=== PATIENT | male | born 1965 | race Two or more races ===

== ENCOUNTER 2017-10-09 17:49 | Emergency (ER) | payer SELFPAY ==
[2017-10-09] MEDS ORDERED: Albuterol/Ipratropium 3.0-0.5 MG/3 ML Neb Soln NEB ONE (17:52)
[2017-10-09] MEDS ORDERED: Albuterol/Ipratropium 3.0-0.5 MG/3 ML Neb Soln ONE (17:54)
--- NOTE | 2017-10-09 17:57 | EDM.PDOC ---
ED HPI GENERAL MEDICAL PROBLEM - General Stated Complaint: SOB, CHEST PAIN Time Seen by Provider: 10/09/17 17:49 Source of Information: Reports: Patient, Family History Limitations: Reports: Respiratory Distress - History of Present Illness INITIAL COMMENTS - FREE TEXT/NARRATIVE: 51 y.o. male with a h/o CAD, came with his family to the ed due to SOB in the past 16 hours. Pt was driving with his family from [place] to [place]-20 hours- . Pt had chest pain yesterday, which improved as the SOB started. Pt came to the ED with sob, Pulse ox was 76 on RA, O2 by NC and a Duoneb were started. Pt felt better. Pt was in care home for 90 days and may have been exposed to bird droppings. Pt had cardiac Stents placed. He takes Plavix and ASA daily. Pt has a h/o HTN for which he takes BP Meds (?) Pt is a poor historian, no old medical record are available. BP 106/67 Pule 106 Pulse ox 96 % on NRBM 4l. Temp 97.5 Onset: Today Onset Date: 10/09/17 Onset Time: 12:00 Duration: Hour(s):, Getting Worse, Intermittent Location: Reports: Chest Quality: Reports: Same as Previous Episode Severity: Moderate Improves with: Reports: Rest Worsens with: Reports: Movement Context: Reports: Other (travel, H/O CAD) Associated Symptoms: Reports: Chest Pain, Cough mid chest Pain Score (Numeric/FACES): 10 - Related Data Allergies Allergy/AdvReac Type Severity Reaction Status Date / Time No Known Allergies Allergy Verified 10/09/17 18:24 Home Meds: Home Meds Aspirin 81 mg PO DAILY 10/09/17 [History] Clopidogrel [Plavix] 75 mg PO DAILY 10/09/17 [History] Isosorbide Mononitrate [Imdur] 60 mg PO DAILY 10/09/17 [History] Lisinopril 20 mg PO DAILY 10/09/17 [History] glipiZIDE [Glucotrol] 5 mg PO DAILY 10/09/17 [History] hydrOXYzine HCl [Atarax] 50 mg PO BEDTIME 10/09/17 [History] levETIRAcetam [Keppra] 500 mg PO DAILY 10/09/17 [History] metFORMIN [Glucophage] 1,000 mg PO WITHDINNER 10/09/17 [History] ED ROS GENERAL - Review of Systems Review Of Systems: Unable To Obtain (Resp distress, Language) ED EXAM, GENERAL - Physical Exam Exam: See Below Exam Limited By: Respiratory Distress General Appearance: Alert, WD/WN, Moderate Distress Eye Exam: Bilateral Eye: Normal Inspection Ears: Normal External Exam Ear Exam: Bilateral Ear: Auricle Normal Nose: Normal Inspection, Normal Mucosa Throat/Mouth: Normal Inspection Head: Atraumatic, Normocephalic Neck: Normal Inspection Respiratory/Chest: Respiratory Distress, Decreased Breath Sounds, Crackles, Rales, Wheezing, Accessory Muscle Use, Prolonged Expiration Cardiovascular: Normal Peripheral Pulses, Regular Rate, Rhythm, No Edema, No JVD Peripheral Pulses: 1+: Brachial (L) GI/Abdominal: Normal Bowel Sounds, Soft, Non-Tender, No Organomegaly, No Distention, No Abnormal Bruit, No Mass, Pelvis Stable (Male) Exam: Deferred Rectal (Males) Exam: Deferred Back Exam: Normal Inspection, Full Range of Motion Extremities: Normal Inspection, Normal Range of Motion, Non-Tender, No Pedal Edema, Normal Capillary Refill Neurological: Alert, Oriented, CN II-XII Intact, Normal Cognition, No Motor/ Sensory Deficits, Abnormal Gait (walks slowely) Psychiatric: Normal Affect, Normal Mood Skin Exam: Warm, Dry, Intact, Normal Color, No Rash Lymphatic: No Adenopathy EKG INTERPRETATION EKG Date: 10/09/17 Time: 18:05 Rhythm: NSR Rate (Beats/Min): 107 [place]: Normal P-Wave: Present QRS: Normal ST-T: Normal QT: Normal Comparison: NA - No Prior EKG Course - Vital Signs Text/Narrative:: 51 y.o. male with a h/o CAD, came with his family to the ed due to SOB in the past 16 hours. Pt was driving with his family from [place] to [place] hours- . Pt had chest pain yesterday which improved as the SOB started. Pt came to the ED with sob, Pulse ox was 76 on RA, O2 by NC and a Duoneb were started. Pt felt better. Pt was in care home and may have been exposed to bird droppings. Pt had cardiac Stents placed in the past. He takes Plavix and ASA daily. Pt has a h/o HTN for which he takes BP Meds (?) Pt is a poor historian, no old medical record are available. BP 106/67 Pule 106 Pulse ox 96 % on NRBM 4l. Temp 97.5 PE: 51 y.o. hisp male with multiple medical problems, poor historian, came to the ED after 19 hours car ride due to SOB Imaging: CXR: Fungal infection, possible Hisoplasmosis, No CHF as per RAD Labs: Na 126 K.4.0 Lactic acid 3.8 GFR 40, Cr. 1.8 BUN 32 Glc 300 Ca 8.2 Cl 91 Troponin 1.9 BNP > 30777 AST 373 Impression: Fungal pneumonia (histoplasmosis), Non STEMI, CRI, Hyponatremia, H/ O CAD (stents) , IDDM with hyperglycemia, H/O pneumonia Tx: Duo neb, Lasix. Levoquine, NS TKO, Heparin drip with bolus. 6.53 pm Consultation: Dr. Curiel, Hospitalist, . ABG, Heparin drip, Abx Lasix, accepted the patient for transfer and tx Reexam: Pt improved, felt better and was able to talk, not able to give any HPI because he did did not remember things like meds etc. Daughter was present. Puls ox was 96% on a NRBM. ABG was pending Plan: Transfer to [facility] PICU Last Recorded V/S: Last Vital Signs Temp 36.6 C 10/09/17 18:00 Pulse 94 10/09/17 18:00 Resp 33 H 10/09/17 18:00 BP 116/69 10/09/17 18:00 Pulse Ox 10 L 10/09/17 18:00 - Orders/Labs/Meds Orders: Medication Orders Sodium Chloride (Normal Saline) 1,000 mls @ 50 mls/hr IV ASDIRECTED [facility] Labs: Laboratory Tests 10/09/17 10/09/17 10/09/17 Range/Units 17:50 17:50 17:50 WBC 16.3 H (4.5-12.0) X10-3/uL RBC 4.00 L (4.30-5.75) x10(6)uL Hgb 13.1 (11.5-15.5) g/dL Hct 37.0 (30.0-51.3) % MCV 92.4 (80-96) fL MCH 32.6 (27.7-33.6) pg MCHC 35.3 (32.2-35.4) g/dL RDW 13.0 (11.5-15.5) % Plt Count 181 (125-369) X10(3)uL MPV 9.9 (7.4-10.4) fL Add Manual Diff Yes Neutrophils % (Manual) 70 (46-82) % Band Neutrophils % 4 (0-6) % Lymphocytes % (Manual) 19 (13-37) % Monocytes % (Manual) 6 (4-12) % Eosinophils % (Manual) 1 (0-5) % APTT (24.4-33.2) SECONDS ABG pH (7.35-7.45) ABG pCO2 (35-45) mmHg ABG pO2 (83-108) mmHg ABG HCO3 (22-26) mmol/L ABG O2 Saturation (96-97) % ABG Base Excess (-2-2) Corey Test O2 Delivery Device Sodium 126 L (135-145) mmol/L Potassium 4.4 (3.5-5.3) mmol/L Chloride 91 L (100-110) mmol/L Carbon Dioxide 22 (21-32) mmol/L BUN 32 H (7-18) mg/dL Creatinine 1.8 H (0.70-1.30) mg/dL Est Cr Clr Drug Dosing TNP Estimated GFR (MDRD) 40 L (>60) BUN/Creatinine Ratio 17.8 (9-20) Glucose 300 H (80-116) mg/dL Lactic Acid (0.4-2.2) mmol/L Calcium 8.2 L (8.6-10.2) mg/dL Magnesium (1.8-2.5) mg/dL Total Bilirubin (0.1-1.3) mg/dL Direct Bilirubin (0.10-0.20) mg/dL AST (5-25) IU/L ALT (12-36) U/L Alkaline Phosphatase (56-112) IU/L Troponin I 104.120 H* (<0.017-0.056) ng/mL NT-Pro-B Natriuret Pep 35015 H* (<=125) pg/mL Total Protein (6.0-8.0) g/dL Albumin (3.5-5.2) g/dL 10/09/17 10/09/17 10/09/17 Range/Units 17:50 17:50 17:50 WBC (4.5-12.0) X10-3/uL RBC (4.30-5.75) x10(6)uL Hgb (11.5-15.5) g/dL Hct (30.0-51.3) % MCV (80-96) fL MCH (27.7-33.6) pg MCHC (32.2-35.4) g/dL RDW (11.5-15.5) % Plt Count (125-369) X10(3)uL MPV (7.4-10.4) fL Add Manual Diff Neutrophils % (Manual) (46-82) % Band Neutrophils % (0-6) % Lymphocytes % (Manual) (13-37) % Monocytes % (Manual) (4-12) % Eosinophils % (Manual) (0-5) % APTT (24.4-33.2) SECONDS ABG pH (7.35-7.45) ABG pCO2 (35-45) mmHg ABG pO2 (83-108) mmHg ABG HCO3 (22-26) mmol/L ABG O2 Saturation (96-97) % ABG Base Excess (-2-2) Corey Test O2 Delivery Device Sodium (135-145) mmol/L Potassium (3.5-5.3) mmol/L Chloride (100-110) mmol/L Carbon Dioxide (21-32) mmol/L BUN (7-18) mg/dL Creatinine (0.70-1.30) mg/dL Est Cr Clr Drug Dosing Estimated GFR (MDRD) (>60) BUN/Creatinine Ratio (9-20) Glucose (80-116) mg/dL Lactic Acid 3.8 H (0.4-2.2) mmol/L Calcium (8.6-10.2) mg/dL Magnesium 1.8 (1.8-2.5) mg/dL Total Bilirubin 0.8 (0.1-1.3) mg/dL Direct Bilirubin 0.18 (0.10-0.20) mg/dL AST 373 H* (5-25) IU/L ALT 69 H (12-36) U/L Alkaline Phosphatase 63 (56-112) IU/L Troponin I (<0.017-0.056) ng/mL NT-Pro-B Natriuret Pep (<=125) pg/mL Total Protein 7.1 (6.0-8.0) g/dL Albumin 3.6 (3.5-5.2) g/dL 10/09/17 10/09/17 Range/Units 17:50 19:20 WBC (4.5-12.0) X10-3/uL RBC (4.30-5.75) x10(6)uL Hgb (11.5-15.5) g/dL Hct (30.0-51.3) % MCV (80-96) fL MCH (27.7-33.6) pg MCHC (32.2-35.4) g/dL RDW (11.5-15.5) % Plt Count (125-369) X10(3)uL MPV (7.4-10.4) fL Add Manual Diff Neutrophils % (Manual) (46-82) % Band Neutrophils % (0-6) % Lymphocytes % (Manual) (13-37) % Monocytes % (Manual) (4-12) % Eosinophils % (Manual) (0-5) % APTT 24.3 L (24.4-33.2) SECONDS ABG pH 7.35 (7.35-7.45) ABG pCO2 40 (35-45) mmHg ABG pO2 31 L* (83-108) mmHg ABG HCO3 22 (22-26) mmol/L ABG O2 Saturation 57 L* (96-97) % ABG Base Excess -3.2 L (-2-2) Corey Test Passed O2 Delivery Device Non rebr mask Sodium (135-145) mmol/L Potassium (3.5-5.3) mmol/L Chloride (100-110) mmol/L Carbon Dioxide (21-32) mmol/L BUN (7-18) mg/dL Creatinine (0.70-1.30) mg/dL Est Cr Clr Drug Dosing Estimated GFR (MDRD) (>60) BUN/Creatinine Ratio (9-20) Glucose (80-116) mg/dL Lactic Acid (0.4-2.2) mmol/L Calcium (8.6-10.2) mg/dL Magnesium (1.8-2.5) mg/dL Total Bilirubin (0.1-1.3) mg/dL Direct Bilirubin (0.10-0.20) mg/dL AST (5-25) IU/L ALT (12-36) U/L Alkaline Phosphatase (56-112) IU/L Troponin I (<0.017-0.056) ng/mL NT-Pro-B Natriuret Pep (<=125) pg/mL Total Protein (6.0-8.0) g/dL Albumin (3.5-5.2) g/dL Meds: Medications Generic Name Dose Route Start Last Admin Trade Name Freq PRN Reason Stop Dose Admin Sodium Chloride 1,000 mls @ 50 mls/hr 10/09/17 19:00 Normal Saline IV ASDIRECTED ADELAIDA Discontinued Medications Generic Name Dose Route Start Last Admin Trade Name Freq PRN Reason Stop Dose Admin Albuterol/Ipratropium 3 ml 10/09/17 17:52 10/09/17 18:10 Duoneb 3.0-0.5 Mg/3 Ml NEB 10/09/17 17:53 3 ml ONETIME ONE Administration Albuterol/Ipratropium Confirm 10/09/17 17:54 10/09/17 18:42 Duoneb 3.0-0.5 Mg/3 Ml Administered 10/09/17 17:55 Not Given Dose 3 ml .ROUTE .STK-MED ONE Aspirin 324 mg 10/09/17 18:04 10/09/17 18:42 Aspirin PO 10/09/17 18:05 Not Given ONETIME ONE Furosemide 40 mg 10/09/17 18:13 10/09/17 18:25 Lasix IVPUSH 10/09/17 18:14 40 mg NOW ONE Administration Furosemide 20 mg 10/09/17 19:05 10/09/17 19:40 Lasix IVPUSH 10/09/17 19:06 Not Given ONETIME ONE Heparin Sodium (Porcine) 4,000 units 10/09/17 19:20 10/09/17 19:43 Heparin Sodium IVPUSH 10/09/17 19:21 4,000 units .BOLUS ONE Administration Levofloxacin/Dextrose 750 mg/ 150 mls @ 100 mls/hr 10/09/17 18:45 10/09/17 19 :02 Premix IV 10/09/17 20:14 100 mls/hr ONETIME ONE Administration Heparin Sodium/Sodium Chloride 25,000 units in 500 mls @ 19.98 mls/hr 19:30 10/09/17 20:06 Heparin 25,000 Units In 1/2 Ns 500 Ml IV 10.8 units/kg/hr TITRATE ADELAIDA 19.98 mls/hr Administration Protocol 10.8 UNITS/KG/HR Departure - Departure Time of Disposition: 20:00 Disposition: DC/Tfer to Acute Hospital 02 Reason for Transfer *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
[2017-10-09] MEDS ORDERED: Aspirin 81 MG Tab.Chew PO ONE (18:04)
[2017-10-09] MEDS ORDERED: Furosemide 40 MG/4 ML VIAL IVPUSH ONE (18:13)
[2017-10-09] MEDS ORDERED: Levofloxacin/Dextrose 5%-Water 750 MG in Premix Bag 1 BAG IV ONE (18:45)
[2017-10-09] MEDS ORDERED: Sodium Chloride 0.9% 1,000 ML IV SCH (19:00)
[2017-10-09] MEDS ORDERED: Furosemide 20 MG/2 ML VIAL IVPUSH ONE (19:05)
[2017-10-09] MEDS ORDERED: Heparin Sodium 5,000 Units/ML Vial IVPUSH ONE (19:20)
[2017-10-09] MEDS ORDERED: Heparin Sodium/0.45% NaCl 25,000 UNITS/500 ML BAG IV SCH (19:30)
--- NOTE | 2017-10-10 10:00 | CR ---
INDICATION: Short of breath. CHEST: A portable AP upright view of the chest was obtained 10/09/2017. No comparisons were available. The heart, mediastinum, and bony thorax were unremarkable. Overlying EKG leads are noted. Fluffy patchy infiltrates are scattered about the lungs, most prominent in the right upper lung field, with a somewhat indistinct nodular appearance. The appearance is suggestive of a fungal pneumonia, although other etiology, even neoplasia, cannot be entirely excluded. Unusual CHF is felt to be unlikely with this appearance, since the heart is normal in size and the appearance of the infiltrates, which are alveolar, are not wholly centralized. IMPRESSION: Areas of infiltrate scattered about the lungs, more peripheral than expected for acute pulmonary edema, raising question of either inhalation injury or fungal disease. Other unusual pneumonia cannot be excluded. Report was called to Dr. Woodall at approximately 1920 hours, 10/09/2017. [facility]
== END 2017-10-09 20:42 ==
LOC: FB.ED 17:49
DX: I21.4 Non-ST elevation (NSTEMI) myocardial infarction (principal); J18.9 Pneumonia, unspecified organism; Z79.82 Long term (current) use of aspirin; Z79.899 Other long term (current) drug therapy
CPT/HCPCS: 36415; 36600; 71045; 80048; 80076; 82803; 83605; 83735; 83880; 84484; 85025; 85730; 87040; 93005; 94640; 96365; 96366; 96375; 99285; J1644; J1940; J1956; J7620

== ENCOUNTER 2018-11-29 21:13 | Observation (INO) | payer MEDICAID ==
--- NOTE | 2018-11-29 21:30 | EDM.PDOC ---
ED HPI GENERAL MEDICAL PROBLEM - General Stated Complaint: VOMITING Time Seen by Provider: 11/29/18 21:20 Source of Information: Reports: Patient, EMS - History of Present Illness INITIAL COMMENTS - FREE TEXT/NARRATIVE: pt comes from home by EMS with c/o gen weakness and 2 emesis since yesterday, tells me he felt light headed yesterday and think he may passed out, denies any injuries or chest pain/ SOB/ leg pain or edema , denies diarrhea or any other associated resp / GI/CV sx. pt has Hx of CAD/ multiple stents and DM . pt here appear comfortable and denies any nausea or pain. SBP at home by EMS was 90 , now here is nl. - Related Data Allergies Allergy/AdvReac Type Severity Reaction Status Date / Time No Known Allergies Allergy Verified 06/11/18 22:00 Home Meds: Home Meds Aspirin 81 mg PO DAILY 10/09/17 [History] Clopidogrel [Plavix] 75 mg PO DAILY 10/09/17 [History] Isosorbide Mononitrate [Imdur] 30 mg PO DAILY 10/09/17 [History] glipiZIDE [Glucotrol] 5 mg PO DAILY 10/09/17 [History] levETIRAcetam [Keppra] 500 mg PO BID 10/09/17 [History] metFORMIN [Glucophage] 1,000 mg PO WITHDINNER 10/09/17 [History] Carvedilol 6.25 mg PO BID 04/02/18 [History] Chlorthalidone 25 mg PO DAILY 04/02/18 [History] Insulin Glarg,Human.Rec.Analog [Lantus] 20 units SQ BEDTIME 04/02/18 [History] atorvaSTATin [Lipitor] 40 mg PO BEDTIME 04/02/18 [History] hydrALAZINE [Apresoline] 5 mg PO TID 04/02/18 [History] Past Medical History Cardiovascular History: Reports: High Cholesterol, Hypertension Other Cardiovascular History: 3 stents last year and this august(2017) Respiratory History: Reports: Other (See Below) Other Respiratory History: chronic smoker; hx of pneumonia Musculoskeletal History: Reports: Arthritis Neurological History: Reports: Other (See Below) Other Neuro History: hx of siezure Psychiatric History: Reports: Anxiety Endocrine/Metabolic History: Reports: Hypothyroidism Social & Family History - Family History Family Medical History: Noncontributory - Caffeine Use Caffeine Use: Reports: Coffee, Soda ED ROS GENERAL - Review of Systems Review Of Systems: See Below Constitutional: Reports: Fatigue. Denies: Fever, Chills, Night Sweats HEENT: Reports: No Symptoms Respiratory: Reports: No Symptoms. Denies: Shortness of Breath, Cough Cardiovascular: Reports: No Symptoms. Denies: Chest Pain, Edema, Palpitations GI/Abdominal: Reports: Anorexia, Vomiting. Denies: Abdominal Pain, Diarrhea, Mucous in Stool, Nausea Musculoskeletal: Reports: No Symptoms Skin: Reports: No Symptoms Neurological: Reports: No Symptoms Psychiatric: Reports: No Symptoms ED EXAM, GENERAL - Physical Exam Exam: See Below Exam Limited By: No Limitations General Appearance: Alert, No Apparent Distress Eye Exam: Bilateral Eye: Normal Inspection Ears: Normal External Exam Nose: Normal Inspection Throat/Mouth: Normal Inspection Head: Atraumatic Neck: Normal Inspection, Supple, Non-Tender Respiratory/Chest: No Respiratory Distress, Lungs Clear Cardiovascular: Normal Peripheral Pulses, Regular Rate, Rhythm, No Edema, No JVD GI/Abdominal: Normal Bowel Sounds, Soft, Non-Tender, No Organomegaly, No Distention Extremities: Normal Inspection, Normal Capillary Refill. No: Pedal Edema Neurological: Alert, Oriented, CN II-XII Intact Course - Vital Signs Text/Narrative:: pt condition remained stable here and unchanged, i do feel his emesis and pre- syncope sx at home are related to hypovolemia, labs shows signs of dehydration. will admit pt OBS to continue with gent dehydration. he will be placed on remote tele and will repeat cardiac enzymes in the morning. Dx. dehydration. syncope. gen weakness. elevated TSH . Hx of CAD and DM. Last Recorded V/S: Last Vital Signs Temp 35.9 C 11/29/18 21:13 Pulse 76 11/29/18 21:13 Resp 18 11/29/18 21:13 BP 118/73 11/29/18 21:13 Pulse Ox 99 11/29/18 21:13 - Orders/Labs/Meds Orders: Active Orders 24 hr Category Date Time Status Patient Status [ADT] Routine ADT 11/29/18 22:39 Ordered Antiembolic Devices [RC] .Routine Care 11/29/18 22:41 Ordered EKG Documentation Completion [RC] ASDIRECTED Care 11/29/18 21:34 Active Pulse Oximetry [RC] PRN Care 11/29/18 22:39 Ordered Up With Assistance [RC] ASDIRECTED Care 11/29/18 22:39 Ordered VTE/DVT Education [RC] Click to Edit Care 11/29/18 22:41 Ordered Vital Signs [RC] Q4H Care 11/29/18 22:39 Ordered Carbohydrate Counting [Consistent Carbohydrate Diet] [ Diet 11/30/18 Breakfast Ordered DIET] LIPASE, SERUM Stat Lab 11/29/18 21:20 Received TROPONIN I [CHEM] Timed Lab 11/30/18 07:00 Ordered Acetaminophen [Tylenol] Med 11/29/18 22:39 Ordered 650 mg PO Q4H PRN Ondansetron [Zofran] Med 11/29/18 22:46 Ordered 4 mg IVPUSH Q6H PRN Sodium Chloride 0.9% @ 125 MLS/HR (1000ml) Med 11/29/18 23:00 Ordered Sodium Chloride 0.9% [Normal Saline] 1,000 ml IV ASDIRECTED DVT/VTE Prophylaxis Reflex [OM.PC] Per Unit Routine Oth 11/29/18 22:39 Ordered Resuscitation Status Routine Resus Stat 11/29/18 22:39 Ordered EKG 12 Lead [EK] Routine Ther 11/29/18 21:34 Ordered Medication Orders Acetaminophen (Tylenol) 650 mg PO Q4H PRN PRN Reason: analgesia/fever Sodium Chloride (Normal Saline) 1,000 mls @ 125 mls/hr IV ASDIRECTED ADELAIDA Ondansetron HCl (Zofran) 4 mg IVPUSH Q6H PRN PRN Reason: Nausea/Vomiting Labs: Laboratory Tests 11/29/18 11/29/18 11/29/18 Range/Units 21:20 21:20 21:20 WBC 8.0 (4.5-12.0) X10-3/uL RBC 4.65 (4.30-5.75) x10(6)uL Hgb 15.7 (13.5-17.8) g/dL Hct 43.6 (30.0-51.3) % MCV 93.6 (80-96) fL MCH 33.8 H (27.7-33.6) pg MCHC 36.1 H (32.2-35.4) g/dL RDW 12.9 (11.5-15.5) % Plt Count 152 (125-369) X10(3)uL MPV 13.0 H (7.4-10.4) fL Neut % (Auto) 67.1 (46-82) % Lymph % (Auto) 24.1 (13-37) % [place] % (Auto) 5.4 (4-12) % Eos % (Auto) 3 (1.0-5.0) % Baso % (Auto) 1 (0-2) % Neut # (Auto) 5.4 (1.6-8.3) # Lymph # (Auto) 1.9 (0.6-5.0) # [place] # (Auto) 0.4 (0.0-1.3) # Eos # (Auto) 0.2 (0.0-0.8) # Baso # (Auto) 0.1 (0.0-0.2) # Sodium 140 (135-145) mmol/L Potassium 5.4 H (3.5-5.3) mmol/L Chloride 104 (100-110) mmol/L Carbon Dioxide 29 (21-32) mmol/L BUN 36 H (7-18) mg/dL Creatinine 1.6 H (0.70-1.30) mg/dL Est Cr Clr Drug Dosing TNP Estimated GFR (MDRD) 45 L (>60) BUN/Creatinine Ratio 22.5 H (9-20) Glucose 140 H (80-116) mg/dL Calcium 9.2 (8.6-10.2) mg/dL Total Bilirubin 0.7 (0.1-1.3) mg/dL AST 27 H D (5-25) IU/L ALT 31 (12-36) U/L Alkaline Phosphatase 89 (56-112) IU/L Troponin I 0.043 (<0.017-0.056) ng/mL Total Protein 7.1 (6.0-8.0) g/dL Albumin 4.1 (3.5-5.2) g/dL Globulin 3.0 g/dL Albumin/Globulin Ratio 1.4 Amylase 87 (25-115) U/L TSH, Ultra Sensitive 9.86 H* (0.36-3.74) IU/mL Meds: Medications Generic Name Dose Route Start Last Admin Trade Name Freq PRN Reason Stop Dose Admin Acetaminophen 650 mg 06/14/19 22:39 Tylenol PO Q4H PRN analgesia/fever Sodium Chloride 1,000 mls @ 125 mls/hr 11/29/18 23:00 Normal Saline IV ASDIRECTED [facility] Ondansetron HCl 4 mg 11/29/18 22:46 Zofran IVPUSH Q6H PRN Nausea/Vomiting Discontinued Medications Generic Name Dose Route Start Last Admin Trade Name Burke PRN Reason Stop Dose Admin Sodium Chloride 500 mls @ 999 drops/sec 11/29/18 21:33 11/29/18 21:57 Normal Saline IV 11/29/18 21:34 999 drops/sec .BOLUS ONE Administration Departure - Departure Time of Disposition: 22:55 Disposition: Refer to Observation Clinical Impression: Vomiting, Syncope - Discharge Information - My Orders Last 24 Hours: My Active Orders 11/29/18 21:20 LIPASE, SERUM Stat 11/29/18 21:34 EKG Documentation Completion [RC] ASDIRECTED EKG 12 Lead [EK] Routine 11/29/18 22:39 Patient Status [ADT] Routine Pulse Oximetry [RC] PRN Up With Assistance [RC] ASDIRECTED Vital Signs [RC] Q4H Acetaminophen [Tylenol] 650 mg PO Q4H PRN DVT/VTE Prophylaxis Reflex [OM.PC] Per Unit Routine Resuscitation Status Routine 11/29/18 22:41 Antiembolic Devices [RC] .Routine VTE/DVT Education [RC] Click to Edit 11/29/18 22:46 Ondansetron [Zofran] 4 mg IVPUSH Q6H PRN 11/29/18 23:00 Sodium Chloride 0.9% @ 125 MLS/HR (1000ml) Sodium Chloride 0.9% [Normal Saline] 1,000 ml IV ASDIRECTED 11/30/18 07:00 TROPONIN I [CHEM] Timed 11/30/18 Breakfast Carbohydrate Counting [Consistent Carbohydrate Diet] [DIET] - Assessment/Plan Last 24 Hours: My Active Orders 11/29/18 21:20 LIPASE, SERUM Stat 11/29/18 21:34 EKG Documentation Completion [RC] ASDIRECTED EKG 12 Lead [EK] Routine 11/29/18 22:39 Patient Status [ADT] Routine Pulse Oximetry [RC] PRN Up With Assistance [RC] ASDIRECTED Vital Signs [RC] Q4H Acetaminophen [Tylenol] 650 mg PO Q4H PRN DVT/VTE Prophylaxis Reflex [OM.PC] Per Unit Routine Resuscitation Status Routine 11/29/18 22:41 Antiembolic Devices [RC] .Routine VTE/DVT Education [RC] Click to Edit 11/29/18 22:46 Ondansetron [Zofran] 4 mg IVPUSH Q6H PRN 11/29/18 23:00 Sodium Chloride 0.9% @ 125 MLS/HR (1000ml) Sodium Chloride 0.9% [Normal Saline] 1,000 ml IV ASDIRECTED 11/30/18 07:00 TROPONIN I [CHEM] Timed 11/30/18 Breakfast Carbohydrate Counting [Consistent Carbohydrate Diet] [DIET]
[2018-11-29] MEDS ORDERED: Sodium Chloride 0.9% 500 ML IV ONE (21:33)
[2018-11-29] MEDS ORDERED: Acetaminophen 325 MG Tab PO PRN (22:39)
[2018-11-29] MEDS ORDERED: Ondansetron 4 MG/2 ML SDV IVPUSH PRN (22:46)
[2018-11-29] MEDS ORDERED: Sodium Chloride 0.9% 1,000 ML IV SCH (23:00)
[2018-11-29] MEDS ORDERED: Albuterol 8 GM Inhaler INH PRN (23:35)
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
[2018-11-30] MEDS ORDERED: Carvedilol 6.25 MG Tab PO SCH (09:00)
[2018-11-30] MEDS ORDERED: levETIRAcetam 500 MG Tab PO SCH (09:00)
[2018-11-30] MEDS ORDERED: Aspirin 81 MG Tab.Chew PO SCH (09:00)
[2018-11-30] MEDS ORDERED: metFORMIN 1,000 MG Tab PO SCH (09:00)
[2018-11-30] MEDS ORDERED: Clopidogrel 75 MG Tab PO SCH (09:00)
[2018-11-30] MEDS ORDERED: Isosorbide Mononitrate 60 MG Tab.ER PO SCH (09:00)
[2018-11-30] MEDS ORDERED: INSULIN GLARG HUMAN REC ANALOG 20 UNIT SQ SCH (09:00)
[2018-11-30] MEDS ORDERED: atorvaSTATin 40 MG Tab PO SCH (21:00)
== END 2018-11-30 10:42 | disposition home or self-care (01) ==
LOC: FB.ED 21:13 → FB.MS 22:48
PROVIDERS: ADMIT Family Medicine; ATTEND Family Medicine
DX: R55 Syncope and collapse (principal); E86.0 Dehydration; N17.9 Acute kidney failure, unspecified; I25.10 Atherosclerotic heart disease of native coronary artery without angina pectoris; I50.9 Heart failure, unspecified; E11.65 Type 2 diabetes mellitus with hyperglycemia; I10 Essential (primary) hypertension; E78.00 Pure hypercholesterolemia, unspecified; I25.2 Old myocardial infarction; M19.90 Unspecified osteoarthritis, unspecified site; E03.9 Hypothyroidism, unspecified; F41.9 Anxiety disorder, unspecified; F17.200 Nicotine dependence, unspecified, uncomplicated; Z79.82 Long term (current) use of aspirin; Z79.4 Long term (current) use of insulin; Z79.899 Other long term (current) drug therapy; Z98.890 Other specified postprocedural states; Z95.5 Presence of coronary angioplasty implant and graft
CPT/HCPCS: 36415; 80048; 80053; 82150; 82962; 83690; 84443; 84484; 85025; 93005; 96360; 99285; J7030; J7040; 96361; G0378

== ENCOUNTER 2018-12-09 21:12 | Emergency (ER) | payer MEDICAID ==
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
== END 2018-12-09 22:55 | disposition home or self-care (01) ==
LOC: FB.ED 21:12
DX: R42 Dizziness and giddiness (principal); I10 Essential (primary) hypertension; E78.00 Pure hypercholesterolemia, unspecified; F41.9 Anxiety disorder, unspecified; F32.9 Major depressive disorder, single episode, unspecified; E03.9 Hypothyroidism, unspecified; F17.210 Nicotine dependence, cigarettes, uncomplicated; Z79.82 Long term (current) use of aspirin; Z79.899 Other long term (current) drug therapy; Z88.0 Allergy status to penicillin
CPT/HCPCS: 36415; 80053; 83735; 84484; 85025; 93005; 99281

== ENCOUNTER 2019-08-17 22:53 | Inpatient (IN) | payer MEDICAID, OTHER ==
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
[2019-08-18] MEDS ORDERED: Bumetanide 1 MG Tab PO ONE (00:53)
[2019-08-18] MEDS ORDERED: Ondansetron 4 MG Tab.DIS PO PRN (02:58)
[2019-08-18] MEDS ORDERED: Nitroglycerin 0.4 MG Tab.SL SL PRN (02:58)
[2019-08-18] MEDS: Bumetanide 1 MG/4 ML MDV IVPUSH SCH ×2 (03:28→20:41)
[2019-08-18] MEDS: Sodium Chloride 0.9% 10 ML Syringe FLUSH PRN ×6 (03:37→20:56)
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
[2019-08-18] MEDS ORDERED: Ferrous Sulfate 325 MG Tab PO SCH (09:00)
[2019-08-18] MEDS ORDERED: Furosemide 100 MG/10 ML SDV IVPUSH ONE (09:00)
[2019-08-18] MEDS ORDERED: Insuln Aspart Prot/Insulin Aspart 100 Units/ML 3 ML FlexPen SUBCUT SCH (09:00)
[2019-08-18] MEDS: Morphine 2 MG/ML SYRINGE IVPUSH PRN ×2 (09:10→15:59)
[2019-08-18] MEDS: Carvedilol 6.25 MG Tab PO SCH ×2 (09:15→20:41)
[2019-08-18] MEDS: Docusate Sodium 100 MG Cap PO SCH ×2 (09:15→20:41)
[2019-08-18] MEDS: Aspirin 81 MG Tab.Chew PO SCH (09:15)
[2019-08-18] MEDS: levETIRAcetam 500 MG Tab PO SCH ×2 (09:15→20:43)
[2019-08-18] MEDS: OXcarbazepine 300 MG Tab PO SCH (09:16)
[2019-08-18] MEDS: Sertraline 25 MG Tab PO SCH (09:16)
[2019-08-18] MEDS: Famotidine 20 MG Tab PO SCH (09:16)
[2019-08-18] MEDS: Clopidogrel 75 MG Tab PO SCH (09:16)
[2019-08-18] MEDS: Gabapentin 300 MG Cap PO SCH ×3 (09:17→20:45)
--- NOTE | 2019-08-18 11:41 | CR ---
INDICATION: Short of breath. CHEST, TWO VIEWS: PA and lateral views of the chest were obtained 08/18/2019 and compared with 06/11/2018 and 04/02/2018. Interval placement of a bipolar pacemaker is noted with leads appearing to be in satisfactory position. The heart appears mildly enlarged, most likely emphasized by a relatively poor inspiration. The aorta is somewhat tortuous but did not appear significantly calcified. Bony structures appear to be grossly intact. A definite active infiltrate or effusion was not identified. No free air is noted under the hemidiaphragm leaves. IMPRESSION: 1. No acute process. 2. ASHD with mild cardiac enlargement and bipolar pacemaker leads. MTDD
--- NOTE | 2019-08-18 11:59 | CT ---
INDICATION: Ascites (creatinine 2.1, GFR 33). CT ABDOMEN AND PELVIS WITHOUT CONTRAST: Spiral 3.75 mm axial sections were obtained through the abdomen and pelvis without contrast 08/18/2019 - no comparison. Total exam DLP was 1730.96 mGy/cm. The lower lung meek and pleural spaces visualized revealed slightly heavy markings, a portion of which appear to be hydrostatic and some may represent minimal atelectatic change or even minimal patchy pneumonia and/or fibrosis. No gross consolidating pneumonia or effusion was seen. The heart appears to be at the upper limits of normal in size or slightly enlarged with pacemaker leads in place. No pericardial effusion was seen. There is noted abdominal ascites about the liver, pericolic gutters, and in the mid abdomen as well as extending into the pelvis. The ascites is moderate in severity. Gallstone and sludge noted in the gallbladder which was not grossly enlarged. No definite ductal dilatation was seen - liver density appears to be grossly normal. No focal liver lesion was seen. There is also ascitic fluid surrounding portions of the spleen which was otherwise unremarkable. The pancreas appeared normal. Calcifications are noted in the abdominal aorta and at the origin of the superior mesenteric artery and in the iliac and femoral arteries. No definite retroperitoneal mass was seen. The prostate did not appear grossly enlarged. The urinary bladder was slightly prominent with a thickened wall suggested which could be on the basis of cystitis but should be correlated clinically. The appendix is absent compatible with history of its removal. No evidence of free air or definite bowel obstruction was seen. The stomach is not fully distended making it difficult to exclude thickening of the wall. The adrenal glands appeared grossly normal. There appears to be some renal fascial thickening which may represent mild renal cortical scarring. The kidneys showed no evidence of renal calcinosis or definite mass lesions or obstruction. However, solid organs are not ideally evaluated without IV contrast. There is evidence of anasarca with increased density in the subcutaneous tissues. IMPRESSION: 1. Abdominal ascites with anasarca - subcutaneous tissues are increased in density. 2. Renal cortical scarring. 3. Thickening of the urinary bladder wall. 4. Cardiac enlargement with bipolar pacemaker leads. 5. Basilar parenchymal changes of questionable etiology, may be on the basis of minimal pneumonia, atelectasis, fibrosis. 6. ASD. 7. Cholelithiasis. The possibility of cholecystitis is difficult to entirely exclude in this patient with fluid surrounding the gallbladder due to the abdominal ascites - acute cholecystitis cannot be excluded. Report was called to Dr. Oquendo at 1130 hours. [facility]
[2019-08-18] MEDS: Ondansetron 4 MG/2 ML SDV IV PRN (17:35)
[2019-08-18] MEDS ORDERED: VALSARTAN PO SCH (21:00)
[2019-08-18] MEDS ORDERED: SACUBITRIL PO SCH (21:00)
[2019-08-18] MEDS ORDERED: atorvaSTATin 40 MG Tab PO SCH (21:00)
[2019-08-18] MEDS ORDERED: Isosorbide Mononitrate 30 MG Tab.ER PO SCH (21:00)
[2019-08-18] MEDS ORDERED: [UNRECOGNIZED DRUG - OTHER] PO SCH (21:00)
[2019-08-19] MEDS: Ondansetron 4 MG/2 ML SDV IV PRN (07:53)
[2019-08-19] MEDS: Sodium Chloride 0.9% 10 ML Syringe FLUSH PRN (07:55)
[2019-08-19] MEDS ORDERED: Furosemide 40 MG/4 ML VIAL IVPUSH SCH (09:00)
[2019-08-19] MEDS: Aspirin 81 MG Tab.Chew PO SCH (10:06)
[2019-08-19] MEDS: Docusate Sodium 100 MG Cap PO SCH (10:06)
[2019-08-19] MEDS: levETIRAcetam 500 MG Tab PO SCH (10:07)
[2019-08-19] MEDS: Famotidine 20 MG Tab PO SCH (10:07)
[2019-08-19] MEDS: Carvedilol 6.25 MG Tab PO SCH (10:07)
[2019-08-19] MEDS: Clopidogrel 75 MG Tab PO SCH (10:08)
[2019-08-19] MEDS: Sertraline 25 MG Tab PO SCH (10:08)
[2019-08-19] MEDS: OXcarbazepine 300 MG Tab PO SCH (10:08)
[2019-08-19] MEDS: Gabapentin 300 MG Cap PO SCH (10:11)
[2019-08-19] MEDS ORDERED: Insulin Lispro Protamine/Lispro 75-25 100 Units/ML 3 ML KwikPen SUBCUT SCH (10:30)
--- NOTE | 2019-08-19 10:57 | US ---
INDICATION: Pain, ascites. RIGHT UPPER QUADRANT/GALLBLADDER ULTRASOUND: Multiple sonographic images were obtained with 2D and color flow imaging and revealed the gallbladder to measure 6.6 x 2.7 x 3 cm. It has a double wall appearance, pericholecystic fluid, and calculi. There was tenderness overlying the gallbladder compatible with a positive ultrasonographic Mccarty's sign with the wall measuring 4.5 mm. The findings are compatible with cholelithiasis and possibly acute cholecystitis. Relatively mild degree of ascites is noted. The liver did not appear enlarged measuring 12.8 cm anteroposterior with no definite intrahepatic ductal dilatation. The right kidney measured 10.7 x 4.5 x 5.1 cm and appeared normal. Common bile duct appeared to be normal at approximately 4.5 mm. It was not well delineated. Pancreas was partly visualized and appeared normal, the tail area not well seen due to intestinal gas overlying it. IMPRESSION: Findings are compatible with cholelithiasis and cholecystitis, possibly acute. MTDD
--- NOTE | 2019-08-19 11:24 | DISCH ---
DISCHARGE DATE: 08/19/2019 REASON FOR ADMISSION: CHF exacerbation. DISCHARGE DIAGNOSES: 1. Congestive heart failure exacerbation. 2. Acute cholecystitis. 3. Chronic kidney disease. 4. Coronary artery disease. 5. Ascites. CONSULTATION: None. PROCEDURES: Ultrasound, CT abdomen. BRIEF COURSE: A 53-year-old male who came in with abdominal pain, swelling, and shortness of breath, was found to have ascites and diagnosed with a CHF exacerbation and got some Lasix and Bumex, but he complained of abdominal pain that is moderate to severe. Ultrasound revealed acute cholecystitis, and the troponin and BNP have also been going up rather than improving. He has had no significant EKG changes and has had no chest pain. Decision was made to transfer him to [facility] for further workup and consultation as necessary. I spent more than 35 minutes in the discharge of the patient. /[id number] [phone] GONZALEZ/ROBERT
== END 2019-08-19 11:08 | DRG 280 ==
LOC: FB.ED 22:53 → FB.MS 08-18 02:53
PROVIDERS: ADMIT Emergency Medicine; ATTEND Family Medicine
DX: I13.0 Hypertensive heart and chronic kidney disease with heart failure and stage 1 through stage 4 chronic kidney disease, or unspecified chronic kidney disease (principal); I50.23 Acute on chronic systolic (congestive) heart failure; I21.4 Non-ST elevation (NSTEMI) myocardial infarction; N17.9 Acute kidney failure, unspecified; K81.0 Acute cholecystitis; R18.8 Other ascites; I25.10 Atherosclerotic heart disease of native coronary artery without angina pectoris; E11.65 Type 2 diabetes mellitus with hyperglycemia; E11.22 Type 2 diabetes mellitus with diabetic chronic kidney disease; F17.200 Nicotine dependence, unspecified, uncomplicated; M54.9 Dorsalgia, unspecified; F32.9 Major depressive disorder, single episode, unspecified; N18.9 Chronic kidney disease, unspecified; E78.5 Hyperlipidemia, unspecified; G40.909 Epilepsy, unspecified, not intractable, without status epilepticus; F41.9 Anxiety disorder, unspecified; E03.9 Hypothyroidism, unspecified; E78.00 Pure hypercholesterolemia, unspecified; Z95.5 Presence of coronary angioplasty implant and graft; Z88.0 Allergy status to penicillin; Z79.4 Long term (current) use of insulin; Z79.899 Other long term (current) drug therapy; Z90.49 Acquired absence of other specified parts of digestive tract
CPT/HCPCS: 36415; 71046; 74176; 76705; 80048; 80053; 81001; 82962; 83735; 83880; 84439; 84443; 84484; 85025; 85610; 86140; 93005; 93010; 99285; 99285-25; A9270-GY; J1815-GY; J1940; J2270; J2405; J3490

== ENCOUNTER 2019-09-06 18:56 | Emergency (ER) | payer MEDICAID ==
[2019-09-06] MEDS ORDERED: Sodium Chloride 0.9% 10 ML Syringe FLUSH PRN (19:03)
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
[2019-09-06] MEDS ORDERED: cefTRIAXone 1 GM in Sodium Chloride 0.9% 50 ML IV ONE (20:19)
[2019-09-06] MEDS ORDERED: Magnesium Sulfate/Water 50 ML ONE (20:23)
[2019-09-06] MEDS ORDERED: Magnesium Sulfate/Water 25 ML IV ONE (20:45)
--- NOTE | 2019-09-08 10:34 | CR ---
INDICATION: Chest pain. CHEST ONE VIEW: An AP upright portable view of the chest 09/06/2019 was compared with 08/18/2019 and 06/11/2018. The heart appears to be enlarged with left ventricular contour that is prominent. A process such as a ventricular aneurysm would be of concern. Unipolar pacemaker lead again noted, unchanged in position. Overlying EKG leads are noted. A definite active infiltrate or effusion was not identified. IMPRESSION: ASHD with cardiomegaly - no definite acute process. MTDD
== END 2019-09-06 21:10 | disposition swing bed (61) ==
LOC: FB.ED 18:56
DX: T82.897A Other specified complication of cardiac prosthetic devices, implants and grafts, initial encounter (principal); I13.0 Hypertensive heart and chronic kidney disease with heart failure and stage 1 through stage 4 chronic kidney disease, or unspecified chronic kidney disease; E11.22 Type 2 diabetes mellitus with diabetic chronic kidney disease; N18.9 Chronic kidney disease, unspecified; I50.9 Heart failure, unspecified; K74.60 Unspecified cirrhosis of liver; R74.0 Nonspecific elevation of levels of transaminase and lactic acid dehydrogenase [LDH]; I25.10 Atherosclerotic heart disease of native coronary artery without angina pectoris; I25.2 Old myocardial infarction; M19.90 Unspecified osteoarthritis, unspecified site; F41.9 Anxiety disorder, unspecified; F32.9 Major depressive disorder, single episode, unspecified; E03.9 Hypothyroidism, unspecified; Z95.5 Presence of coronary angioplasty implant and graft; Z95.810 Presence of automatic (implantable) cardiac defibrillator; Z79.82 Long term (current) use of aspirin; Z79.02 Long term (current) use of antithrombotics/antiplatelets; Z79.899 Other long term (current) drug therapy; Z79.4 Long term (current) use of insulin
CPT/HCPCS: 36415; 71045; 80053; 81001; 83605; 83735; 83880; 84484; 85025; 85379; 85610; 85730; 87040; 87086; 93005; 96365; 96368; 99285; J0696; J3475; J7050; J7060

== ENCOUNTER 2019-09-26 21:53 | Emergency (ER) | payer MEDICAID, OTHER ==
[2019-09-26] MEDS ORDERED: Acetaminophen 500 MG Tab PO ONE (22:11)
[2019-09-26] MEDS: Sodium Chloride 0.9% 10 ML Syringe FLUSH PRN (22:51)
[2019-09-26] MEDS ORDERED: Heparin Sodium 5,000 Units/ML Vial IVPUSH ONE (23:12)
[2019-09-26] MEDS ORDERED: Aspirin 81 MG Tab.Chew PO ONE (23:12)
[2019-09-26] MEDS ORDERED: Heparin Sodium/0.45% NaCl 500 ML IV SCH (23:13)
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
[2019-09-27] MEDS ORDERED: Ondansetron 4 MG/2 ML SDV IVPUSH ONE (00:45)
[2019-09-27] MEDS: Sodium Chloride 0.9% 10 ML Syringe FLUSH PRN (00:45)
[2019-09-27] MEDS ORDERED: fentaNYL 100 MCG/2 ML SDV IVPUSH STA (00:45)
--- NOTE | 2019-09-29 09:49 | CR ---
INDICATION: Fever. CHEST, ONE VIEW: AP upright view of the chest 09/26/19 was obtained portable and compared with 09/16/19 and 08/18/19. The heart is enlarged with bipolar pacemaker leads unchanged in position. A definite active infiltrate or effusion was not identified. IMPRESSION: 1. No acute process. 2. ASHD with cardiomegaly and bipolar pacemaker leads. MTDD
== END 2019-09-27 01:05 ==
LOC: FB.ED 21:53
DX: I21.4 Non-ST elevation (NSTEMI) myocardial infarction (principal); I11.0 Hypertensive heart disease with heart failure; I50.23 Acute on chronic systolic (congestive) heart failure; N17.9 Acute kidney failure, unspecified; E11.9 Type 2 diabetes mellitus without complications; I25.10 Atherosclerotic heart disease of native coronary artery without angina pectoris; E78.00 Pure hypercholesterolemia, unspecified; M19.90 Unspecified osteoarthritis, unspecified site; F41.9 Anxiety disorder, unspecified; F32.9 Major depressive disorder, single episode, unspecified; E03.9 Hypothyroidism, unspecified; Z87.891 Personal history of nicotine dependence; Z88.0 Allergy status to penicillin; Z79.82 Long term (current) use of aspirin; Z79.02 Long term (current) use of antithrombotics/antiplatelets; Z79.4 Long term (current) use of insulin; Z79.899 Other long term (current) drug therapy
CPT/HCPCS: 36415; 71045; 80053; 81001; 82150; 83605; 83690; 83880; 84484; 85025; 85610; 85730; 87040; 87635; 87804; 93005; 96365; 96366; 96375; 99285; A9270; J1644; J2405; J3010; U0002